=== PATIENT | female | born 1970 | race African-American/Black ===

== ENCOUNTER 2017-10-02 07:12 | Day surgery (SDC) | payer OTHER ==
[2017-09-26 13:57] VITALS: BMI 42.5
[2017-10-02] MEDS ORDERED: MIDAZOLAM HCL 2 MG/2 ML SINGLE DOSE VIAL ONE (08:48)
[2017-10-02 10:08] VITALS: PULSE 84; TEMP 97.4
[2017-10-02] MEDS ORDERED: oxyCODONE HCL 5 MG TABLET PO PRN (10:20)
[2017-10-02] MEDS ORDERED: ONDANSETRON 4 MG/2 ML VIAL IVPUSH PRN (10:20)
[2017-10-02] MEDS ORDERED: LACTATED RINGERS SOLUTION 1,000 ML IV SCH (10:30)
[2017-10-02 10:42] VITALS: BP 128/89
--- NOTE | 2017-10-03 16:50 | OP ---
DATE OF OPERATION: 10/02/2017 PREOPERATIVE DIAGNOSIS: Right carpal tunnel syndrome. POSTOPERATIVE DIAGNOSIS: Right carpal tunnel syndrome. OPERATIVE PROCEDURE: Right carpal tunnel release. ANESTHESIA: Local with sedation. COMPLICATIONS: None. ESTIMATED BLOOD LOSS: Minimal. INDICATION FOR PROCEDURE: The patient is a 47-year-old female with the above finding, indicated for operative treatment. Risks, benefits, and alternatives were discussed with the patient at length. Proper informed consent was obtained. PROCEDURE: After proper identification of the patient and the correct operative site, the patient was brought to the operating room and placed supine on the operative table. Prominences were well padded. Sedation was given by the anesthesiologist. Local anesthesia was given with 2% lidocaine. The right upper extremity was prepped and draped in the usual sterile fashion. A well-padded tourniquet was placed as well as a sterile prep. An Esmarch bandage was used to exsanguinate the right upper extremity. The tourniquet was inflated to 250 mmHg. A longitudinal incision was made in the proximal aspect of the palm. Incision was taken sharply through the skin with blunt and sharp dissection through the subcutaneous tissues. Palmar fascia was divided longitudinally. Transcarpal ligament was divided longitudinally under direct visualization with loupe magnification. This provided complete release of the median nerve at the wrist. Wound was irrigated with saline and repaired with a 5-0 nylon suture. Sterile dressings were applied. Patient was brought to recovery room in stable condition. She tolerated the procedure well. Svitlana [id number]
== END 2017-10-02 11:00 | disposition home or self-care (01) ==
LOC: FASU 07:12
PROVIDERS: ATTEND Orthopaedic Surgery Hand Surgery
PROC: 01N50ZZ Release Median Nerve, Open Approach (ICD-10-PCS; principal; 2017-10-02 09:39)
DX: G56.01 Carpal tunnel syndrome, right upper limb (principal)
CPT/HCPCS: 84703

== ENCOUNTER 2018-01-22 09:30 | Day surgery (SDC) | payer OTHER ==
[2018-01-15 09:40] VITALS: BMI 42.5
[2018-01-22] MEDS ORDERED: MIDAZOLAM HCL 2 MG/2 ML SINGLE DOSE VIAL ONE ×2 (10:10→10:53)
[2018-01-22] MEDS ORDERED: PROPOFOL 20 ML ONE (10:10)
[2018-01-22] MEDS ORDERED: LIDOCAINE HCL 2% (20ML MULTI-DOSE VIAL) NR ONE (10:22)
[2018-01-22 12:17] VITALS: TEMP 97.7
[2018-01-22 12:52] VITALS: BP 120/70; PULSE 80
--- NOTE | 2018-01-23 14:22 | OP ---
DATE OF OPERATION: 01/22/2018 PREOPERATIVE DIAGNOSIS: Left carpal tunnel syndrome. POSTOPERATIVE DIAGNOSIS: Left carpal tunnel syndrome. PROCEDURE: Left carpal tunnel release. ANESTHESIA: Local with sedation. COMPLICATIONS: None. ESTIMATED BLOOD LOSS: Minimal. INDICATIONS FOR PROCEDURE: The patient is a 47-year-old female with the above finding, indicated for operative treatment. Risks, benefits, and alternatives were discussed with patient at length. Proper informed consent was obtained. PROCEDURE: After proper identification of patient and correct operative site, patient brought to operating room, placed supine on the table, prominences well padded. Sedation was given by the anesthesiologist. Local anesthesia was given. The left upper extremity was prepped and draped in usual sterile fashion. Esmarch bandage to exsanguinate left upper extremity. Tourniquet was placed, 250 mmHg. A longitudinal incision was made over the proximal aspect of the palm. Incision was taken sharply through the skin with blunt and sharp dissection through subcutaneous tissues. Palmar fascia was divided longitudinally. Transverse carpal ligament along with the distal 4 cm of antebrachial fascia were divided longitudinally under direct visualization with loupe magnification. This provided complete release of the median nerve at the wrist. The wound was repaired with 5-0 nylon suture. Sterile dressings were applied. Patient was reversed from anesthesia and brought to recovery room in stable condition. She tolerated procedure well. JAMES TURNER M.D. [id number]
== END 2018-01-22 12:00 | disposition home or self-care (01) ==
LOC: FASU 09:30
PROVIDERS: ATTEND Orthopaedic Surgery Hand Surgery
PROC: 01N50ZZ Release Median Nerve, Open Approach (ICD-10-PCS; principal; 2018-01-22 11:03)
DX: G56.02 Carpal tunnel syndrome, left upper limb (principal)
CPT/HCPCS: 84703